=== PATIENT | female | born 1970 | race Hispanic/Latino ===

== ENCOUNTER 2019-04-10 22:31 | Emergency (ER) | payer BC ==
--- OUTSIDE RECORDS SUMMARY | 2019-04-10 22:33 | XMS REPORT | Summary of Care ---
:1970 Author Organization [facility] Address [address] [place] [id number] Care Team Providers Name Role Phone Filemon Mcgarry Primary Care Provider Reason for Visit Reason Comments Refill Request Encounter Details Date Type Department Care Team Description 12/15/2018 Refill [facility] Luan Dee MD Refill Request Neurology-[address] [place] [id number] [address] [place] [address] [phone] Allergies Active Allergy Reactions Severity Noted Date Comments Iodine Hives 05/03/2015 IV documented as of this encounter (statuses as of 12/15/2018) Medications Medication Sig Dispensed Refills Start Date End Date Status acetaminophen-codei Take 1 Tab by 60 Tab 0 05/03/2015 Active ne (TYLENOL #3) mouth every 4 300-30 mg tablet (four) hours as needed for Pain (scale 1-3). promethazine Take 10 mL by 300 mL 0 05/03/2015 Active (PHENERGAN) 6.25 mouth every 4 mg/5 mL solution (four) hours as needed for Nausea and Vomiting (N/V). leflunomide 20 mg Take 20 mg by 1 06/09/2018 Active tablet mouth daily. ergocalciferol, Take by 0 Active vitamin D2, mouth. (VITAMIN D ORAL) L-GLUTAMINE ORAL Take by 0 Active mouth. calcium citrate Take by 0 Active (CITRACAL ORAL) mouth. GABAPENTIN 300 mg TAKE 1 CAPSULE 90 capsule 3 07/10/2018 Active capsuleIndications: BY MOUTH THREE Paresthesias/numbne TIMES A DAY ss AMITRIPTYLINE 25 mg TAKE 1 TABLET 30 tablet 0 12/15/2018 Active tablet BY MOUTH EVERYDAY AT BEDTIME amitriptyline 25 mg Take 1 tablet 30 tablet 0 11/11/2018 Discontinued tablet by mouth at 9 bedtime. documented as of this encounter (statuses as of 12/15/2018) Active Problems Problem Noted Date Dysplasia of cervix (uteri) 05/03/2015 Encounter for sterilization 05/03/2015 documented as of this encounter (statuses as of 12/15/2018) Social History Tobacco Use Types Packs/Day Years Used Date Never Smoker Smokeless Tobacco: Never Used Alcohol Use Drinks/Week oz/Week Comments Yes Sex Assigned at Date Recorded Not on file Job Start Date Occupation Industry Not on file Not on file Not on file Travel History Travel Start Travel End No recent travel history available. 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 Technician Device Shelf Model / Identifier Expiration Serial / Date Lot Disposable Falope Ring RING Left: Gyrus 12/22/2019 [id number] / Implanted: Qty: 1 on 05/03/2015 by Fabian Baxter MD at [facility] Fallopian tube [id number] / [id number] documented as of this encounter Results Not on filedocumented in this encounter Insurance Payer Benefit Plan Subscriber ID Effective Dates Phone Address Type / Group BCBS OF [facility] [id number] 2018-Lynda [phone] [address] PPO/POS [place] t [id number] [place] [address] documented as of this encounter
--- OUTSIDE RECORDS SUMMARY | 2019-04-10 22:33 | XMS REPORT ---
:1970 [facility] Address [address] [place] [address] Dr. Clements [address] [place] [address] Care Team Providers Name Role Phone Unavailable Unavailable Unavailable Problems This patient has no known problems. Allergies, Adverse Reactions, Alerts This patient has no known allergies or adverse reactions. Medications This patient has no known medications.
--- OUTSIDE RECORDS SUMMARY | 2019-04-10 22:33 | XMS REPORT | Summary of Care ---
:1970 Author Organization [facility] Address [address] [place] [id number] Care Team Providers Name Role Phone Filemon Mcgarry Primary Care Provider Reason for Visit Reason Comments Refill Request Encounter Details Date Type Department Care Team Description 01/16/2019 Refill [facility] Luan Dee MD Refill Request Neurology-[address] [place] [phone] Suite [facility] [phone] [place] [address] [phone] Allergies Active Allergy Reactions Severity Noted Date Comments Iodine Hives 05/03/2015 IV documented as of this encounter (statuses as of 01/18/2019) Medications Medication Sig Dispensed Refills Start Date [...] mg TAKE 1 TABLET 30 tablet 0 01/18/2019 Active tablet BY MOUTH EVERYDAY AT BEDTIME AMITRIPTYLINE 25 mg TAKE 1 TABLET 30 tablet 0 12/15/2018 Discontinued tablet BY MOUTH 9 EVERYDAY AT BEDTIME documented as of this encounter (statuses as of 01/18/2019) Active Problems Problem Noted Date Dysplasia of cervix (uteri) 05/03/2015 Encounter for sterilization 05/03/2015 documented as of this encounter (statuses as of 01/18/2019) Social History Tobacco Use Types Packs/Day Years [...] Date Last Done Comments DTaP,Tdap,and Td Vaccines (1 - 1989 Tdap) PAP SMEAR 1991 MAMMOGRAM 2010 INFLUENZA VACCINE (#1) 2019 PNEUMOCOCCAL 0-64 YEARS COMBINED Aged Out No longer eligible based on SERIES patient's age to complete this topic documented as of this encounter Implants Implanted Type Area Tax Examiner Device Shelf Model / Identifier Expiration Serial / Date Lot Disposable Falope Ring RING Left: Gyrus 12/22/2019 [id number] / Implanted: Qty: 1 on 05/03/2015 by Fabian Baxter MD at [facility] Fallopian tube [id number] / [id number] documented as of this encounter Results Not on filedocumented in this encounter Insurance Payer Benefit Plan Subscriber ID Effective Dates Phone Address Type / Group BCBS OF [employer] [place] [id number] 2018-Lnyda [phone] [address] PPO/POS [place] t [id number] [place] [address] documented as of this encounter
[2019-04-10] MEDS ORDERED: ASPIRIN 81 MG CHEWABLE TABLET ONE (22:51)
[2019-04-10] MEDS ORDERED: CLOPIDOGREL 75 MG TABLET ONE (22:51)
[2019-04-10] MEDS ORDERED: NA CHLORIDE 0.9% 1,000 ML ONE ×2 (22:52→23:01)
[2019-04-10] MEDS ORDERED: ONDANSETRON 4 MG/2 ML VIAL ONE (22:52)
[2019-04-10] MEDS ORDERED: MORPHINE 4 MG/ML SYR ONE ×2 (22:52→23:03)
[2019-04-10] MEDS ORDERED: TENECTEPLASE 50 MG/10 ML VIAL IV ONE (22:56)
[2019-04-10] MEDS ORDERED: HEPARIN 5000 UNIT/ML 1 ML VIAL ONE (22:56)
[2019-04-10] MEDS ORDERED: HEPARIN/D5W 25,000 UNIT/500 ML BAG IV ONE (22:56)
[2019-04-10] MEDS ORDERED: FAMOTIDINE 20 MG/2 ML VIAL IV ONE (22:56)
[2019-04-10] MEDS ORDERED: NA CHLORIDE 0.9% 2,000 ML ONE (23:01)
[2019-04-10 23:13] LABS: Absolute Lymphocytes (CBC) 2.6 K/uL (0.7-4.9); Basophils % 0.6 % (0-1.3); Hematocrit 33.8 % (36.0-45.0); Lymphocytes % 36.4 % (15.3-44.8); RBC Red Blood Cell Count 3.71 M/uL (3.86-4.86)
[2019-04-10 23:14] LABS: Protime INR 1.08
[2019-04-10] MEDS ORDERED: ATROPINE SULF 1 MG/10 ML SYR IV ONE (23:17)
--- NOTE | 2019-04-10 23:17 | EDPHYS ---
Physician Documentation [facility] Name: Isabella Mora Age: 49 yrs Sex: Female : 1970 Arrival Date: 04/10/2019 Time: 22:32 Bed 17 Private MD: ED Physician Josue Evans HPI: 04/10 23:09 This 49 yrs old Female presents to ER via Unassigned with complaints of Chest supa Pain. 23:09 The patient or guardian reports chest pain that is located primarily in the substernal supa area, anterior chest wall, left. Onset: just prior to arrival. The pain does not radiate. Associated signs and symptoms: Pertinent positives: dizziness, nausea, shortness of breath. The chest pain is described as clutching, a pressure. Modifying factors: The symptoms are alleviated by nothing. the symptoms are aggravated by nothing. Severity of pain: At its worst the pain was severe in the emergency department the pain is unchanged. The patient has not experienced similar symptoms in the past. 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 - Social history:: Smoking status: Patient/guardian denies using tobacco, never smoked. - Family history:: not pertinent. - Ebola Screening: : No symptoms or risks identified at this time. ROS: 23:09 Eyes: Negative for injury, pain, redness, and discharge, ENT: Negative for injury, supa pain, and discharge, Neck: Negative for injury, pain, and swelling, Respiratory: Negative for shortness of breath, cough, wheezing, and pleuritic chest pain, Abdomen/GI: Negative for abdominal pain, nausea, vomiting, diarrhea, and constipation, Back: Negative for injury and pain, : Negative for injury, bleeding, discharge, and swelling, MS/Extremity: Negative for injury and deformity, Skin: Negative for injury, rash, and discoloration, Neuro: Negative for headache, weakness, numbness, tingling, and seizure, Psych: Negative for depression, anxiety, suicide ideation, homicidal ideation, and hallucinations, Allergy/Immunology: Negative for hives, rash, and allergies, Endocrine: Negative for neck swelling, polydipsia, polyuria, polyphagia, and marked weight changes, Hematologic/Lymphatic: Negative for swollen nodes, abnormal bleeding, and unusual bruising. 23:09 Constitutional: Positive for 23:09 Cardiovascular: Positive for chest pain. Exam: 23:09 Constitutional: This is a well developed, well nourished patient who is awake, alert, supa and in no acute distress. Head/Face: Normocephalic, atraumatic. Eyes: Pupils equal round and reactive to light, extra-ocular motions intact. Lids and lashes normal. Conjunctiva and sclera are non-icteric and not injected. Cornea within normal limits. Periorbital areas with no swelling, redness, or edema. ENT: Nares patent. No nasal discharge, no septal abnormalities noted. Tympanic membranes are normal and external auditory canals are clear. Oropharynx with no redness, swelling, or masses, exudates, or evidence of obstruction, uvula midline. Mucous membranes moist. Neck: Trachea midline, no thyromegaly or masses palpated, and no cervical lymphadenopathy. Supple, full range of motion without nuchal rigidity, or vertebral point tenderness. No Meningismus. Chest/axilla: Normal chest wall appearance and motion. Nontender with no deformity. No lesions are appreciated. Cardiovascular: Regular rate and rhythm with a normal S1 and S2. No gallops, murmurs, or rubs. Normal PMI, no JVD. No pulse deficits. Respiratory: Lungs have equal breath sounds bilaterally, clear to auscultation and percussion. No rales, rhonchi or wheezes noted. No increased work of breathing, no retractions or nasal flaring. Abdomen/GI: Soft, non-tender, with normal bowel sounds. No distension or tympany. No guarding or rebound. No evidence of tenderness throughout. Back: No spinal tenderness. No costovertebral tenderness. Full range of motion. Skin: Warm, dry with normal turgor. Normal color with no rashes, no lesions, and no evidence of cellulitis. MS/ Extremity: Pulses equal, no cyanosis. Neurovascular intact. Full, normal range of motion. Neuro: Awake and alert, GCS 15, oriented to person, place, time, and situation. Cranial nerves II-XII grossly intact. Motor strength 5/5 in all extremities. Sensory grossly intact. Cerebellar exam normal. Normal gait. Psych: Awake, alert, with orientation to person, place and time. Behavior, mood, and affect are within normal limits. 23:09 Musculoskeletal/extremity: DVT Exam: No signs of deep vein thrombosis. no pain, no swelling, no tenderness, negative Homans' sign noted on exam, no appreciated bluish discoloration, no erythema, no increased warmth. Vital Signs: 22:56 BP 111 / 84; Pulse 64; Resp 28 S; Temp 97.6(O); Pulse Ox 100% on R/A; Weight 71.8 kg cc3 (M); Pain 10/10; 23:00 BP 107 / 69; Pulse 73; Resp 27 S; Pulse Ox 100% on 2 lpm NC; cc3 23:05 BP 110 / 88; Pulse 62; Resp 23 S; Pulse Ox 100% on 2 lpm NC; cc3 23:10 BP 123 / 81; Pulse 62; Resp 19 S; Pulse Ox 100% on 2 lpm NC; cc3 23:20 BP 105 / 68; Pulse 52; Resp 19 S; Pulse Ox 100% on 2 lpm NC; Pain 5/10; cc3 MDM: 23:12 Data reviewed: vital signs, nurses notes, lab test result(s), EKG, radiologic studies, supa plain films. 23:16 Patient medically screened. [facility] 04/10 22:48 Order name: Basic Metabolic Panel; Complete Time: 23:40 [facility] 04/10 22:48 Order name: CBC with Diff; Complete Time: 23:40 [facility] 04/10 22:48 Order name: LFT's; Complete Time: 23:40 [facility] 04/10 22:48 Order name: Magnesium; Complete Time: 23:40 [facility] 04/10 22:48 Order name: NT PRO-BNP; Complete Time: 23:40 [facility] 04/10 22:48 Order name: PT-INR; Complete Time: 23:40 [facility] 04/10 22:48 Order name: Troponin (emerg Dept Use Only); Complete Time: 23:40 [facility] 04/10 22:48 Order name: XRAY Chest (1 view) [facility] 04/10 22:48 Order name: EKG; Complete Time: 22:54 [facility] 04/10 22:48 Order name: Cardiac monitoring; Complete Time: 23:21 [facility] 04/10 22:48 Order name: EKG - Nurse/Tech; Complete Time: 23:21 [facility] 04/10 22:48 Order name: IV Saline Lock; Complete Time: 23: [facility] 04/10 22:48 Order name: Labs collected and sent; Complete Time: 23: [facility] 04/10 22:48 Order name: O2 Per Protocol; Complete Time: 23:21 [facility] 04/10 22:48 Order name: O2 Sat Monitoring; Complete Time: 23:21 [facility] Administered Medications: 22:45 Drug: NS 0.9% 1000 ml Route: IV; Rate: 1 bolus; Site: right antecubital; bb 23:20 Follow up: Response: No adverse reaction; IV Status: Completed infusion; IV Intake: cc3 1000ml 22:46 Drug: Zofran 4 mg Route: IVP; Site: right antecubital; bb 23:00 Follow up: Response: No adverse reaction; Nausea is decreased; Vomiting decreased cc3 22:47 Drug: morphine 4 mg Route: IVP; Site: right antecubital; bb 23:20 Follow up: Response: No adverse reaction; Pain is decreased; RASS: Alert and Calm (0) cc3 22:49 Drug: PlaVIX 600 mg Route: PO; bb 23:00 Follow up: Response: No adverse reaction cc3 22:49 Drug: Aspirin Chewable Tablet 324 mg Route: PO; bb 23:00 Follow up: Response: No adverse reaction cc3 22:50 Drug: Heparin (OR-Bolus with thrombolytic) - HEParin 60 units/kg {Co-Signature: cc3 bb (Laure Cordel).} Route: IVP; Site: right antecubital; 23:00 Follow up: Response: No adverse reaction cc3 22:55 Drug: Heparin (OR Drip) 12 units/kg/hr - (HEParin 10969 units, D5W 500 ml) bb {Co-Signature: cc3 (Laure Cordel).} Route: IV; Rate: calculated rate; Site: right antecubital; 23:20 Follow up: Response: No adverse reaction; IV Status: Infusion continued upon transfer cc3 23:00 Drug: Pepcid 20 mg Route: IVP; Site: right antecubital; bb 23:20 Follow up: Response: No adverse reaction; Pain is decreased cc3 23:00 Drug: Tenecteplase 40 mg {Co-Signature: cc3 (Laure Cordel).} Route: IV; Rate: per bb protocol; Site: right hand; 23:20 Follow up: Response: No adverse reaction; IV Status: Completed infusion cc3 Disposition: 04/10/19 23:[address] [facility]. Diagnosis is ST elevation (STEMI) myocardial infarction of inferior wall - inferior lateral mi. - Reason for transfer: Higher level of care. - Accepting physician is to [facility] , lab aide. - Condition is Serious. - Problem is new. - Symptoms have improved. Signatures: Dispatcher [employer] EDJosue Germain MD MD cha Ballard, Brenda RN RN Mando Talavera, CRYPTOZOOLOGIST-C CRYPTOZOOLOGIST-Cla1 Laure Sosa cc3 Manuela Kessler cc3 Corrections: (The following items were deleted from the chart) 23:31 23:16 04/10/2019 23:[address] [facility]. Diagnosis is ar5 ST elevation (STEMI) myocardial infarction of inferior wall - inferior lateral mi. Reason for transfer: Higher level of care. Accepting physician is to [facility] , lab aide. Condition is Serious. Problem is new. Symptoms have improved. supa
--- NOTE | 2019-04-10 23:17 | ER ---
Nurse's Notes [facility] Name: Isabella Mora Age: 49 yrs Sex: Female : 1970 Arrival Date: 04/10/2019 Time: 22:32 Bed 17 Private MD: Diagnosis: ST elevation (STEMI) myocardial infarction of inferior wall-inferior lateral mi Presentation: 04/10 22:40 Presenting complaint: Patient states: Chest pain and tightness since an hour ago after cc3 coming from a [employer] party, patient said she had a glass of wine. Transition of care: patient was not received from another setting of care. Onset of symptoms was April 10, 2019. Risk Assessment: Do you want to hurt yourself or someone else? Patient reports no desire to harm self or others. Initial Sepsis Screen: Does the patient meet any 2 criteria? No. Patient's initial sepsis screen is negative. Does the patient have a suspected source of infection? No. Patient's initial sepsis screen is negative. Care prior to arrival: None. 22:40 Method Of Arrival: Wheelchair cc3 22:40 Acuity: ASHLY 1 cc3 Triage Assessment: 22:40 General: Appears in no apparent distress. uncomfortable, Behavior is anxious, restless. cc3 Pain: Complains of pain in central chest and left side of chest Pain does not radiate. Pain currently is 10 out of 10 on a pain scale. Quality of pain is described as aching. EENT: No signs and/or symptoms were reported regarding the EENT system. Neuro: Level of Consciousness is awake, alert, obeys commands, Oriented to person, place, time, situation, Appropriate for age. Cardiovascular: Reports chest pain, lightheadedness, shortness of breath, Heart tones S1 S2 present Capillary refill < 3 seconds in bilateral fingers Patient's skin is warm and dry. Respiratory: Airway is patent Respiratory effort is even, unlabored, Respiratory pattern is regular, symmetrical, Breath sounds are clear bilaterally. GI: Abdomen is flat, Bowel sounds present X 4 quads. Abd is soft and non tender X 4 quads. : No signs and/or symptoms were reported regarding the genitourinary system. Derm: Skin is intact, is healthy with good turgor, Skin is pink, warm \T\ dry. normal. Musculoskeletal: Circulation, motion, and sensation intact. Range of motion: intact in all extremities. 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 - Social history:: Smoking status: Patient/guardian denies using tobacco, never smoked. - Family history:: not pertinent. - Ebola Screening: : No symptoms or risks identified at this time. Screenin:40 Abuse screen: Denies threats or abuse. Denies injuries from another. Nutritional cc3 screening: No deficits noted. Tuberculosis screening: No symptoms or risk factors identified. Fall Risk Ambulatory Aid- None/Bed Rest/Nurse Assist (0 pts). Gait- Normal/Bed Rest/Wheelchair (0 pts) Mental Status- Oriented to own ability (0 pts). Assessment: 22:40 Pain: Complains of pain in central and left side chest pain Pain does not radiate. Pain cc3 began 1 hour ago. 23:00 Reassessment: Patient for transfer to [facility], called for report and handed over cc3 to Evie Hansen. Transfer form completed. ED directory clerk to arrange for life flight transport. 23:20 Reassessment: Patient appears in no apparent distress at this time. Patient and/or cc3 family updated on plan of care and expected duration. Pain level reassessed. Patient is alert, oriented x 3, equal unlabored respirations, skin warm/dry/pink. Life flight came for patient transport. Patient states feeling better. Patient states symptoms have improved. Vital Signs: 22:56 BP 111 / 84; Pulse 64; Resp 28 S; Temp 97.6(O); Pulse Ox 100% on R/A; Weight 71.8 kg cc3 (M); Pain 10/10; 23:00 BP 107 / 69; Pulse 73; Resp 27 S; Pulse Ox 100% on 2 lpm NC; cc3 23:05 BP 110 / 88; Pulse 62; Resp 23 S; Pulse Ox 100% on 2 lpm NC; cc3 23:10 BP 123 / 81; Pulse 62; Resp 19 S; Pulse Ox 100% on 2 lpm NC; cc3 23:20 BP 105 / 68; Pulse 52; Resp 19 S; Pulse Ox 100% on 2 lpm NC; Pain 5/10; cc3 ED Course: 22:32 Patient arrived in ED. cl3 22:39 Laure Sosa is Primary Nurse. cc3 22:40 Oxygen administration via nasal cannula \T\ 2L/min. cc3 22:40 Patient has correct armband on for positive identification. Placed in gown. Bed in low cc3 position. Call light in reach. Side rails up X2. school bus monitor on. Pulse ox on. NIBP on. 22:40 Arm band placed on right wrist. EKG completed in triage. Results shown to MD. cc3 22:43 Josue Evans MD is Attending Physician. [facility] 22:45 Inserted saline lock: 18 gauge in right antecubital area, using aseptic technique. cc3 Blood collected. inserted by SONNY Harvey. 23:09 Triage completed. cc3 23:20 No provider procedures requiring assistance completed. Patient transferred, IV remains cc3 in place. 23:21 XRAY Chest (1 view) In Process Unspecified. EDMS Administered Medications: 22:45 Drug: NS 0.9% 1000 ml Route: IV; Rate: 1 bolus; Site: right antecubital; bb 23:20 Follow up: Response: No adverse reaction; IV Status: Completed infusion; IV Intake: cc3 1000ml 22:46 Drug: Zofran 4 mg Route: IVP; Site: right antecubital; bb 23:00 Follow up: Response: No adverse reaction; Nausea is decreased; Vomiting decreased cc3 22:47 Drug: morphine 4 mg Route: IVP; Site: right antecubital; bb 23:20 Follow up: Response: No adverse reaction; Pain is decreased; RASS: Alert and Calm (0) cc3 22:49 Drug: PlaVIX 600 mg Route: PO; bb 23:00 Follow up: Response: No adverse reaction cc3 22:49 Drug: Aspirin Chewable Tablet 324 mg Route: PO; bb 23:00 Follow up: Response: No adverse reaction cc3 22:50 Drug: Heparin (NH-Bolus with thrombolytic) - HEParin 60 units/kg {Co-Signature: cc3 bb (Laure Sosa).} Route: IVP; Site: right antecubital; 23:00 Follow up: Response: No adverse reaction cc3 22:55 Drug: Heparin (NH Drip) 12 units/kg/hr - (HEParin 10645 units, D5W 500 ml) bb {Co-Signature: cc3 (Laure Cordel).} Route: IV; Rate: calculated rate; Site: right antecubital; 23:20 Follow up: Response: No adverse reaction; IV Status: Infusion continued upon transfer cc3 23:00 Drug: Pepcid 20 mg Route: IVP; Site: right antecubital; bb 23:20 Follow up: Response: No adverse reaction; Pain is decreased cc3 23:00 Drug: Tenecteplase 40 mg {Co-Signature: cc3 (Laure Cordel).} Route: IV; Rate: per bb protocol; Site: right hand; 23:20 Follow up: Response: No adverse reaction; IV Status: Completed infusion cc3 Intake: 23:20 IV: 1000ml; Total: 1000ml. cc3 Outcome: 23:16 ER care complete, transfer ordered by MD. cowart 23:20 Transferred by helicopter to [facility], Transfer form completed. cc3 X-rays sent w/ patient. 23:20 critical 23:20 Instructed on the need for transfer, Demonstrated understanding of instructions. 23:31 Patient left the ED. ar5 Signatures: Dispatcher [employer] EDMS Josue Evans MD MD cha Ballard, Brenda, RN RN Laure Joya cc3 Manuela Kessler arRoz Encarnacion cl3 Laure Sosa cc3 Corrections: (The following items were deleted from the chart) 04/11 01:10 04/10 23:10 BP 123 / 81; Pulse 62bpm; Resp 19bpm; Spontaneous; Pulse Ox 100% RA; cc3 cc3
[2019-04-10 23:35] LABS: ALT/SGPT 23 U/L (12-78); AST/SGOT 23 U/L (15-37); Albumin 3.7 g/dL (3.4-5.0); Alkaline Phosphatase 126 U/L (45-117); BUN Blood Urea Nitrogen 16 mg/dL (7-18); Bicarbonate 21 mmol/L (21-32); Bilirubin Direct < 0.1 mg/dL (0-0.2); Bilirubin Total 0.4 mg/dL (0.2-1.0); Glucose Level 141 mg/dL (74-106); Magnesium 2.2 mg/dL (1.8-2.4); NT PRO-BNP 39 pg/mL (<125); Potassium 3.2 mmol/L (3.5-5.1); Protein, Total 7.3 g/dL (6.4-8.2); Sodium Level 146 mmol/L (136-145); Troponin (Emerg Dept Use Only) < 0.02 ng/mL (0.0-0.045)
[2019-04-10 23:56] VITALS: BP 111/84; TEMP 97.6; O2SAT 100
--- NOTE | 2019-04-11 08:24 | RAD REPORT ---
EXAM DESCRIPTION: RAD - Chest Single View - 04/10/2019 11:19 pm CLINICAL HISTORY: Chest pain COMPARISON: April 2017 TECHNIQUE: AP portable chest image was obtained 2312 hours . FINDINGS: Lungs are clear. Heart and vasculature are normal. No measurable pleural effusion and no p neumothorax. No acute bony abnormality seen. No acute aortic findings suspected. IMPRESSION: No acute cardiopulmonary process. No significant change from comparison.
--- NOTE | 2019-04-11 10:11 | EKG ---
Test Date: 2019-04-10 Test Time: 22:42:47 Spray Rig Operator: JAYLYN MEASUREMENT RESULTS: Intervals: Rate: 62 VA: 120 QRSD: 96 QT: 394 QTc: 399 [place]: P: 42 VA: 120 QRS: 48 T: 83 INTERPRETIVE STATEMENTS: Age and gender specific ECG analysis Normal sinus rhythm ST elevation, consider inferior injury or acute infarct ACUTE PR Consider right ventricular involvement in acute inferior infarct Abnormal ECG No previous ECG available for comparison Electronically Signed On 04-11-19 10:10:29 HANDBAG DESIGNER by Wild Barger
--- NOTE | 2019-04-11 10:11 | EKG ---
Test Date: 2019-04-10 Test Time: 23:07:59 Title Investigator: JAYLYN MEASUREMENT RESULTS: Intervals: Rate: 58 IL: 122 QRSD: 104 QT: 442 QTc: 433 [place]: P: 67 IL: 122 QRS: 68 T: 91 INTERPRETIVE STATEMENTS: Sinus bradycardia Nonspecific ST abnormality Inferior infarct Abnormal ECG Compared to ECG 04/10/2019 22:42:47 Sinus rhythm no longer present Inferior injury pattern is no longer present Electronically Signed On 04-11-19 10:10:22 PUBLIC POLICY COORDINATOR by Wild Barger
== END 2019-04-10 23:31 | disposition short-term general hospital (02) ==
LOC: ER 22:31
DX: I21.19 ST elevation (STEMI) myocardial infarction involving other coronary artery of inferior wall (principal)
CPT/HCPCS: 96365; 92977; 93005 ×2; 85025; 80048; 36415; 83735; 85610; 80076; 84484; 83880; 71045; 96375; 99291; J1644; J3101; J7030 ×3; J2405

== ENCOUNTER 2024-02-15 19:11 | Emergency (ER) | payer BC ==
[2024-02-15] MEDS ORDERED: METOCLOPRAMIDE 10 MG/2mL INJ ONE (19:35)
[2024-02-15] MEDS ORDERED: DIPHENHYDRAMINE 50 MG/ML VIAL ONE (19:35)
[2024-02-15] MEDS ORDERED: FAMOTIDINE 20 MG/2 ML VIAL IV ONE (19:35)
[2024-02-15] MEDS ORDERED: NA CHLORIDE 0.9% 1,000 ML ONE (19:35)
[2024-02-15] MEDS ORDERED: KETOROLAC 30 MG/ML INJ ONE (19:35)
--- NOTE | 2024-02-15 19:44 | ER ---
Nurse's Notes [facility] Name: Isabella Mora Age: 54 yrs Sex: Female : 1970 Arrival Date: 02/15/2024 Time: 19:11 Bed 7 Private MD: Diagnosis: Headache;UTI/ Urinary tract infection, site not specified Presentation: 02/14 19:19 Chief complaint: Patient states: Sent from urgent care in [place] due to patient cm10 having low blood pressure, generalized weakness and headache. Pt states that the lowest her pressure was in the 90s systolic. Coronavirus screen: Client denies travel out of the [place] in the last 14 days. Ebola Screen: Patient denies travel to an Ebola-affected area in the 21 days before illness onset. No symptoms or risks identified at this time. Initial Sepsis Screen: Does the patient meet any 2 criteria? No. Patient's initial sepsis screen is negative. Does the patient have a suspected source of infection? No. Patient's initial sepsis screen is negative. Risk Assessment: Do you want to hurt yourself or someone else? Patient reports no desire to harm self or others. Onset of symptoms was February 15, 2024. 19:19 Method Of Arrival: Ambulatory cm10 19:19 Acuity: ASHLY 3 cm10 Triage Assessment: 19:20 General: Appears in no apparent distress. comfortable, Behavior is calm, cooperative. cm10 Neuro: No deficits noted. Level of Consciousness is awake, alert, obeys commands, Oriented to person, place, time, situation, Appropriate for age. Respiratory: No deficits noted. Airway is patent Respiratory effort is even, unlabored, Respiratory pattern is regular, symmetrical. 21:38 Headache History: Denies prior headaches. 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 - Infectious Disease History:: Denies. - Social history:: Smoking status: Patient denies any tobacco usage or history of. - Family history:: not pertinent. Screenin:24 [facility] ED Fall Risk Assessment (Adult) History of falling in the last 3 months, cp4 including since admission No falls in past 3 months (0 pts) Confusion or Disorientation No (0 pts) Intoxicated or Sedated No (0 pts) Impaired Gait No (0 pts) Mobility Assist Device Used No (0 pt) Altered Elimination No (0 pt) Score/Fall Risk Level 0 - 2 = Low Risk Oriented to surroundings, Maintained a safe environment, Assessed \T\ reinforced patient's understanding of fall precautions, Hourly rounding (assess needs \T\ fall precautionary measures) done. Abuse screen: Denies threats or abuse. Nutritional screening: No deficits noted. Tuberculosis screening: No symptoms or risk factors identified. Assessment: 19:24 General: Appears in no apparent distress. uncomfortable, Behavior is calm, cooperative, cp4 appropriate for age. Pain: Complains of pain in head Pain does not radiate. Pain currently is 7 out of 10 on a pain scale. Neuro: Level of Consciousness is awake, alert, obeys commands, Oriented to person, place, time, situation. Cardiovascular: Patient's skin is warm and dry. Respiratory: Airway is patent Respiratory effort is even, unlabored. GI: No signs and/or symptoms were reported involving the gastrointestinal system. : No signs and/or symptoms were reported regarding the genitourinary system. EENT: No signs and/or symptoms were reported regarding the EENT system. Derm: No signs and/or symptoms reported regarding the dermatologic system. Musculoskeletal: No signs and/or symptoms reported regarding the musculoskeletal system. 20:00 Reassessment: Patient appears in no apparent distress at this time. Patient and/or cp4 family updated on plan of care and expected duration. Pain level reassessed. Patient is alert, oriented x 3, equal unlabored respirations, skin warm/dry/pink. 20:58 Reassessment: Dispo pending. Waiting for urine results. cp4 20:58 Reassessment: Patient appears in no apparent distress at this time. Patient and/or cp4 family updated on plan of care and expected duration. Pain level reassessed. Patient is alert, oriented x 3, equal unlabored respirations, skin warm/dry/pink. Vital Signs: 19:19 BP 163 / 91; Pulse 75; Resp 16; Temp 98; Pulse Ox 100% ; Weight 68.04 kg; Height 5 ft. cm10 7 in. ; Pain 7/10; 20:00 BP 129 / 79; Pulse 67; Resp 18; Pulse Ox 100% ; cp4 21:00 BP 123 / 80; Pulse 69; Resp 18; Pulse Ox 100% ; cp4 19:19 Body Mass Index 23.49 (68.04 kg, 170.18 cm) cm10 19:19 Pain Scale: Adult cm10 Tala Coma Score: 19:42 Eye Response: spontaneous(4). Motor Response: obeys commands(6). Verbal Response: supa oriented(5). Total: 15. ED Course: 19:14 Patient arrived in ED. ra3 19:16 Milana Prasad is Primary Nurse. cp4 19:17 Josue Evans MD is Attending Physician. supa 19:20 Triage completed. cm10 19:21 Arm band placed on Patient placed in an exam room, on a stretcher. cm10 19:24 Bed in low position. Call light in reach. Side rails up X 1. cp4 19:24 No provider procedures requiring assistance completed. cp4 19:39 EKG done, by ED staff, reviewed by Josue Evans MD. sa1 19:42 Initial lab(s) drawn, by ED staff, sent to lab. Inserted saline lock: 20 gauge in right cp4 antecubital area, using aseptic technique. ,using aseptic technique. US used Blood collected. Flushed with 10 mL NS Missed attempt(s): 22 gauge in right forearm. Bleeding controlled, band aid applied, catheter tip intact. 20:04 XRAY Chest (1 view) In Process Unspecified. EDMS 20:23 CT Head Brain wo Cont In Process Unspecified. EDMS 20:42 Saul Marcial MD is Referral Physician. supa 21:37 intact, bleeding controlled, No redness/swelling at site. Pressure dressing applied. cp4 21:38 Provided Education on: migraine and uti.. cp4 Administered Medications: 19:41 Drug: Ketorolac IVP 30 mg IVP once Route: IVP; Site: right antecubital; cp4 20:14 Follow up: Response: No adverse reaction; Pain is decreased cp4 19:41 Drug: Famotidine IVP 20 mg IVP once; dilute with 10 mL 0.9% NaCl; give over 2 minutes cp4 Route: IVP; Site: right antecubital; 20:14 Follow up: Response: No adverse reaction; Pain is decreased cp4 19:42 Drug: metoCLOPramide IVP 10 mg IVP once; over 1 to 2 minutes Route: IVP; Site: right cp4 antecubital; 20:14 Follow up: Response: No adverse reaction cp4 19:42 Drug: diphenhydrAMINE IVP 50 mg IVP once Route: IVP; Site: right antecubital; cp4 20:14 Follow up: Response: No adverse reaction cp4 19:43 Drug: NS 0.9% IV 1000 ml IV at 1000 ml once; to be given as a bolus over 60 minutes cp4 Route: IV; Rate: 1000 ml; Site: right antecubital; 21:31 Follow up: Response: No adverse reaction; IV Status: Completed infusion cp4 20:08 Drug: MethylPrednisoLONE IVP 125 mg IVP once Route: IVP; Site: right antecubital; bm8 20:40 Follow up: Response: No adverse reaction cp4 21:30 Drug: Rocephin IV 1 grams IV at per protocol once; Given slow IV push per pharmacy cp4 instructions Route: IV; Rate: per protocol; Site: right antecubital; 21:32 Follow up: Response: No adverse reaction; IV Status: Completed infusion cp4 21:30 Drug: Ciprofloxacin PO 500 mg PO once Route: PO; cp4 21:31 Follow up: Response: No adverse reaction cp4 Medication: 19:24 VIS not applicable for this client. cp4 Outcome: 19:44 Discharge ordered by . supa 20:42 Discharge ordered by . [facility] 21:37 Discharged to home ambulatory, cp4 21:37 Condition: stable 21:37 Discharge instructions given to patient, Instructed on discharge instructions, follow up and referral plans. medication usage, Demonstrated understanding of instructions, follow-up care, medications, Prescriptions given X 3, 21:39 Patient left the ED. cp4 Signatures: Dispatcher [employer] EDMS Josue Evans MD MD cha Martinez, Clarissa, RN RN cm10 Milana Prasad cp4 Tuyet Acosta ra3 Antonio Crabtree RN RN bm8 Sultan Amrik sa1 Corrections: (The following items were deleted from the chart) 19:39 19:19 Allergies: No Known Allergies; 10 cm10
--- NOTE | 2024-02-15 19:44 | EDPHYS ---
Physician Documentation [facility] Name: Isabella Mora Age: 54 yrs Sex: Female : 1970 Arrival Date: 02/15/2024 Time: 19:11 Bed 7 Private MD: REINALDO Physician Josue Evans HPI: 02/14 19:40 This 54 yrs old Female presents to ER via Ambulatory with complaints of supa Headache, Blood Pressure Problem. 19:40 The patient complains of pain to the top of head, forehead, left frontal area, left supa side of the back of head, right frontal area and right side of the back of head. The patient describes the headache as constant. Onset: The symptoms/episode began/occurred 2 day(s) ago. Associated signs and symptoms: Pertinent positives: dizziness, nausea. Severity of symptoms: At its worst the pain was moderate, in the emergency department the pain is unchanged. Headache History: The patient has had previous headaches and this one is different than previous episodes. The symptoms are alleviated by nothing. the symptoms are aggravated by nothing. 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 - Infectious Disease History:: Denies. - Social history:: Smoking status: Patient denies any tobacco usage or history of. - Family history:: not pertinent. ROS: 19:40 Constitutional: Negative for fever, chills, and weight loss, Eyes: Negative for injury, supa pain, redness, and discharge, ENT: Negative for injury, pain, and discharge, Neck: Negative for injury, pain, and swelling, Cardiovascular: Negative for chest pain, palpitations, and edema, Abdomen/GI: Negative for abdominal pain, nausea, vomiting, diarrhea, and constipation, Back: Negative for injury and pain, : Negative for injury, bleeding, discharge, and swelling, MS/Extremity: Negative for injury and deformity, Skin: Negative for injury, rash, and discoloration, Psych: Negative for depression, anxiety, suicide ideation, homicidal ideation, and hallucinations, Allergy/Immunology: Negative for hives, rash, and allergies, Endocrine: Negative for neck swelling, polydipsia, polyuria, polyphagia, and marked weight changes, Hematologic/Lymphatic: Negative for swollen nodes, abnormal bleeding, and unusual bruising, 19:40 Respiratory: Positive for cough, 19:40 Neuro: Positive for headache, Exam: 19:40 Constitutional: This is a well developed, well nourished patient who is awake, alert, supa and in no acute distress. Head/Face: Normocephalic, atraumatic. Eyes: Pupils equal round and reactive to light, extra-ocular motions intact. Lids and lashes normal. Conjunctiva and sclera are non-icteric and not injected. Cornea within normal limits. Periorbital areas with no swelling, redness, or edema. ENT: Nares patent. No nasal discharge, no septal abnormalities noted. Tympanic membranes are normal and external auditory canals are clear. Oropharynx with no redness, swelling, or masses, exudates, or evidence of obstruction, uvula midline. Mucous membranes moist. Neck: Trachea midline, no thyromegaly or masses palpated, and no cervical lymphadenopathy. Supple, full range of motion without nuchal rigidity, or vertebral point tenderness. No Meningismus. Chest/axilla: Normal chest wall appearance and motion. Nontender with no deformity. No lesions are appreciated. Cardiovascular: Regular rate and rhythm with a normal S1 and S2. No gallops, murmurs, or rubs. Normal PMI, no JVD. No pulse deficits. Respiratory: Lungs have equal breath sounds bilaterally, clear to auscultation and percussion. No rales, rhonchi or wheezes noted. No increased work of breathing, no retractions or nasal flaring. Abdomen/GI: Soft, non-tender, with normal bowel sounds. No distension or tympany. No guarding or rebound. No evidence of tenderness throughout. Back: No spinal tenderness. No costovertebral tenderness. Full range of motion. Skin: Warm, dry with normal turgor. Normal color with no rashes, no lesions, and no evidence of cellulitis. MS/ Extremity: Pulses equal, no cyanosis. Neurovascular intact. Full, normal range of motion. Neuro: Awake and alert, GCS 15, oriented to person, place, time, and situation. Cranial nerves II-XII grossly intact. Motor strength 5/5 in all extremities. Sensory grossly intact. Cerebellar exam normal. Normal gait. Psych: Awake, alert, with orientation to person, place and time. Behavior, mood, and affect are within normal limits. 19:40 ECG was reviewed by the Attending Physician. Vital Signs: 19:19 BP 163 / 91; Pulse 75; Resp 16; Temp 98; Pulse Ox 100% ; Weight 68.04 kg; Height 5 ft. cm10 7 in. ; Pain 7/10; 20:00 BP 129 / 79; Pulse 67; Resp 18; Pulse Ox 100% ; cp4 21:00 BP 123 / 80; Pulse 69; Resp 18; Pulse Ox 100% ; cp4 19:19 Body Mass Index 23.49 (68.04 kg, 170.18 cm) cm10 19:19 Pain Scale: Adult cm10 Tala Coma Score: 19:42 Eye Response: spontaneous(4). Motor Response: obeys commands(6). Verbal Response: supa oriented(5). Total: 15. MDM: 19:17 Patient medically screened. supa 19:42 Differential diagnosis: cervical epidural bleed, hypertensive headache, hypoglycemia, supa hyponatremia, intracerebral hemorrhage, meningitis, migraine, sinusitis, subarachnoid bleed, subdural hematoma, temporal arteritis, tension headache, trigeminal neuralgia, uremia. Data reviewed: vital signs, nurses notes, lab test result(s), EKG, radiologic studies, CT scan, plain films. Consideration of Admission/Observation Escalation of care including admission/observation considered. I considered the following discharge prescriptions or medication management in the emergency department Medications were administered in the Emergency Department. See MAR. Test considered but Not performed: MRI: no mri brain. 02/14 19:31 Order name: Basic Metabolic Panel; Complete Time: 20:06 supa 02/14 19:31 Order name: CBC with Diff; Complete Time: 20:06 [facility] 02/14 19:31 Order name: LFT's; Complete Time: 20:06 [facility] 02/14 19:31 Order name: Magnesium; Complete Time: 20:06 [facility] 02/14 19:31 Order name: NT PRO-BNP; Complete Time: 20:06 supa 02/14 19:31 Order name: PT-INR; Complete Time: 20:06 supa 02/14 19:31 Order name: Troponin HS; Complete Time: 20:06 supa 02/14 19:31 Order name: Lipase; Complete Time: 20:06 [facility] 02/14 19:31 Order name: Urinalysis w/ reflexes; Complete Time: 21:20 [facility] 02/14 19:31 Order name: XRAY Chest (1 view); Complete Time: 20:42 [facility] 02/14 19:31 Order name: CT Head Brain wo Cont; Complete Time: 20:42 [facility] 02/14 19:31 Order name: Cardiac monitoring; Complete Time: 19:32 [facility] 02/14 19:31 Order name: EKG - Nurse/Tech; Complete Time: 19:32 [facility] 02/14 19:31 Order name: IV Saline Lock; Complete Time: 19:32 [facility] 02/14 19:31 Order name: Labs collected and sent; Complete Time: 19:32 [facility] 02/14 19:31 Order name: O2 Per Protocol; Complete Time: 19:33 [facility] 02/14 19:31 Order name: O2 Sat Monitoring; Complete Time: 19:33 [facility] EC:40 Rate is 66 beats/min. Rhythm is regular. QRS [place] is Normal. RI interval is normal. QRS supa interval is normal. QT interval is normal. No Q waves. T waves are Normal. No ST changes noted. Clinical impression: NSR w/ Non-specific ST/T Changes and No evidence of ischemia. Interpreted by me. Reviewed by me. Administered Medications: 19:41 Drug: Ketorolac IVP 30 mg IVP once Route: IVP; Site: right antecubital; cp4 20:14 Follow up: Response: No adverse reaction; Pain is decreased cp4 19:41 Drug: Famotidine IVP 20 mg IVP once; dilute with 10 mL 0.9% NaCl; give over 2 minutes cp4 Route: IVP; Site: right antecubital; 20:14 Follow up: Response: No adverse reaction; Pain is decreased cp4 19:42 Drug: metoCLOPramide IVP 10 mg IVP once; over 1 to 2 minutes Route: IVP; Site: right cp4 antecubital; 20:14 Follow up: Response: No adverse reaction cp4 19:42 Drug: diphenhydrAMINE IVP 50 mg IVP once Route: IVP; Site: right antecubital; cp4 20:14 Follow up: Response: No adverse reaction cp4 19:43 Drug: NS 0.9% IV 1000 ml IV at 1000 ml once; to be given as a bolus over 60 minutes cp4 Route: IV; Rate: 1000 ml; Site: right antecubital; 21:31 Follow up: Response: No adverse reaction; IV Status: Completed infusion cp4 20:08 Drug: MethylPrednisoLONE IVP 125 mg IVP once Route: IVP; Site: right antecubital; bm8 20:40 Follow up: Response: No adverse reaction cp4 21:30 Drug: Rocephin IV 1 grams IV at per protocol once; Given slow IV push per pharmacy cp4 instructions Route: IV; Rate: per protocol; Site: right antecubital; 21:32 Follow up: Response: No adverse reaction; IV Status: Completed infusion cp4 21:30 Drug: Ciprofloxacin PO 500 mg PO once Route: PO; cp4 21:31 Follow up: Response: No adverse reaction cp4 Disposition Summary: 02/15/24 20:42 Discharge Ordered Notes: Location: Home(02/15/24 20:42) supa Problem: new(02/15/24 20:42) supa Symptoms: have improved(02/15/24 20:42) supa Condition: Stable(02/15/24 20:42) supa Diagnosis - Headache(02/15/24 20:42) supa - UTI/ Urinary tract infection, site not specified supa Followup: supa - With: Private Physician - When: 2 - 3 days - Reason: Recheck today's complaints, Continuance of care, Re-evaluation by your physician Followup: supa - With: Saul Marcial MD - When: 2 - 3 days - Reason: Recheck today's complaints, Re-evaluation by your physician Discharge Instructions: - Discharge Summary Sheet supa - General Headache Without Cause supa - Migraine Headache supa - Urinary Tract Infection, Adult supa - Urinary Tract Infection, Adult, Uczw-wy-[id number] supa - Migraine Headache, Dolz-we-Exly supa - General Headache Without Cause, Kncm-sn-Njja supa Forms: - Medication Reconciliation Form supa - Antibiotic Education supa - Prescription Opioid Use supa - Patient Portal Instructions supa - Leadership Thank You Letter supa Prescriptions: - Fioricet with Codeine [id number] mg Oral capsule - take 2 capsule ORAL route every 4 hours as needed for pain; do not exceed 6 supa caps per day; 18 capsule; Refills: 0, Product Selection Permitted - ondansetron 4 mg Oral Tablet,disintegrating - take 1 tablet ORAL route every 6-8 hours for 5 days as needed for nausea and supa vomiting; 20 tablet; Refills: 0, Product Selection Permitted - Cipro 250 mg Oral tablet - take 1 tablet ORAL route every 12 hours; 12 tablet; Refills: 0, Product supa Selection Permitted Signatures: Dispatcher [employer] EDMS Josue Evans MD MD cha Brown, Sophia, PAGayathri [email or web address] Renetta Gunter, RN RN cm10 Milana Prasad cp4 Antonio Crabtree RN RN bm8 Corrections: (The following items were deleted from the chart) 19:32 19:32 BASIC METABOLIC PANEL+C.LAB.BRZ ordered. EDMS EDMS 19:32 19:32 CBC+H.LAB.BRZ ordered. EDMS EDMS 19:32 19:32 HEPATIC FUNCTION+C.LAB.BRZ ordered. EDMS EDMS 19:32 19:32 MAGNESIUM+C.LAB.BRZ ordered. EDMS EDMS 19:32 19:32 PROBNP+C.LAB.BRZ ordered. EDMS EDMS 19:32 19:32 PROTIME (+INR)+COAG.LAB.BRZ ordered. EDMS EDMS 19:32 19:32 Troponin High Sensitivity+C.LAB.BRZ ordered. EDMS EDMS 19:32 19:32 LIPASE+C.LAB.BRZ ordered. EDMS EDMS 19:32 19:32 Urinalysis+U.LAB.BRZ ordered. EDMS EDMS 19:32 19:32 Chest Single View+RAD.RAD.BRZ ordered. EDMS EDMS 19:32 19:32 Head Brain Wo Cont+CT.RAD.BRZ ordered. EDMS EDMS 19:33 19:33 Neck Angio+CT.RAD.BRZ ordered. EDMS EDMS 19:39 19:19 Allergies: No Known Allergies; cm10 cm10 19:55 19:44 Home supa supa 19:55 19:44 new supa supa 19:55 19:44 have improved supa supa 19:55 19:44 Stable supa supa 19:55 19:44 Headache supa supa 20:23 19:52 Head angio ordered. EDMS EDMS
[2024-02-15 19:45] LABS: Absolute Eosinophils 0.1 K/uL (0-0.5); Absolute Lymphocytes (CBC) 2.5 K/uL (0.7-4.9); Absolute Monocytes 0.3 K/uL (0.1-1.3); Absolute Neutrophil 2.2 K/uL (1.8-8.0); Basophils % 0.8 % (0-1.3); Eosinophils % 2.1 % (0-4.4); Hematocrit 37.6 % (36.0-45.0); Hemoglobin 12.8 g/dL (12.0-15.0); Lymphocytes % 48.2 % (15.3-44.8); MCH 31.4 pg (27.0-35.0); MCHC 34.2 g/dL (32.0-36.0); MCV 91.9 fL (80-100); MPV 8.8 fL (7.6-11.3); Monocytes % 6.3 % (3.3-12.3); Neutrophils % 42.6 % (41.7-73.7); Platelets 213 thou/uL (152-406); RBC Red Blood Cell Count 4.09 M/uL (3.86-4.86); Red Cell Distribution Width 13.1 % (12.1-15.2)
[2024-02-15 19:48] LABS: PT Prothrombin Time 11.8 SECONDS (9.4-12.5); Protime INR 1.06
[2024-02-15] MEDS ORDERED: METHYLPREDNISOLONE 125 MG INJ ONE (20:03)
[2024-02-15 20:04] LABS: ALT/SGPT 24 U/L (13-56); AST/SGOT 23 U/L (15-37); Albumin/Globulin Ratio 1.1 (1.1-1.8); Alkaline Phosphatase 104 U/L (45-117); Anion Gap 7.7 mEq/L (5.0-15.0); BUN Blood Urea Nitrogen 20 mg/dL (7-18); Bicarbonate 27 mEq/L (21-32); Bilirubin Total 0.4 mg/dL (0.2-1.0); Globulin 3.6 g/dL (2.3-3.5); Glomerular Filtration Rate 95 ml/min (=/>90); Glucose Level 96 mg/dL (74-106); Lipase 52 U/L (13-75); Magnesium 2.1 mg/dL (1.6-2.4); NT PRO-BNP 60 pg/mL (<125); Potassium 3.7 mEq/L (3.5-5.1); Protein, Total 7.6 g/dL (6.4-8.2); Sodium Level 140 mEq/L (136-145); Troponin High Sensitivity 7.5 pg/mL (<58.9)
[2024-02-15 20:05] LABS: Bilirubin Direct < 0.2 mg/dL (0-0.2); Bilirubin Indirect, Calculated 0.2 mg/dL (0.2-0.8)
--- NOTE | 2024-02-15 20:32 | RAD REPORT ---
EXAM: CT brain without contrast HISTORY: Headache COMPARISON: None TECHNIQUE: Multiple contiguous axial images were obtained and a CT of the brain without contrast.. Sagittal and coronal reconstruction performed. Automated exposure control, adjustment of the mA and/or kV according to patient size, and/or iterative reconstruction. Unless otherwise specified, incidental f indings do not require dedicated imaging follow-u FINDINGS: An intracranial bleed is not seen Ventricles are normal caliber No extra-axial fluid collection noted No significant hypodensity within the brain No fluid within the visualized sinuses or mastoids noted. Mucous retention cyst left maxillary sinus. IMPRESSION: No acute intracranial abnormality noted. If the patient's symptoms persist MRI of the brain would be recommended.
--- NOTE | 2024-02-15 20:33 | RAD REPORT ---
Procedure: Chest Single View HISTORY: SOB COMPARISON: 2019 FINDINGS: The lungs appear clear of acute infiltrate. No significant pleural effusion noted. The heart is normal size. IMPRESSION: No acute abnormality is displayed.
[2024-02-15 21:07] LABS: Specific Gravity 1.009 (1.005-1.030); Sqamous Epithelial None Seen /HPF (None Seen); Urine Bacteria None Seen /HPF (<20); Urine Bilirubin NEGATIVE (Negative); Urine Blood Negative (Negative); Urine Clarity Clear (Clear); Urine Color Colorless (Yellow); Urine Culture Reflex Order NOT NEEDED; Urine Glucose NEGATIVE (Negative); Urine Ketones NEGATIVE (Negative); Urine Microscopic Reflex YN ORDER UMIC; Urine Mucus Slight /HPF (None Seen); Urine Nitrite NEGATIVE (Negative); Urine Protein NEGATIVE (Negative); Urine RBC <5 /HPF (None Seen); Urine Urobilinogen Normal (Normal); Urine WBC <5 /HPF (<5); Urine WBC Clump Rare /HPF (None Seen)
[2024-02-15] MEDS ORDERED: CIPROFLOXACIN HCL 500 MG TAB ONE (21:24)
[2024-02-15] MEDS ORDERED: CEFTRIAXONE 1000 MG/VIAL ONE (21:24)
[2024-02-16 01:57] VITALS: O2SAT 100
[2024-02-16 01:59] VITALS: TEMP 98
[2024-02-16 02:01] VITALS: BP 123/80
== END 2024-02-15 21:39 | disposition home or self-care (01) ==
LOC: ER 19:11
DX: R51.9 Headache, unspecified (principal); N39.0 Urinary tract infection, site not specified; R05.9 Cough, unspecified
CPT/HCPCS: 93005; 85025; 81001; 80048; 36415; 83735; 85610; 80076; 84484; 83690; 83880; 70450; 71045; J2765; J1200; J2919; J7030; J0696